=== PATIENT | female | born 1995 | race Caucasian/White ===

== ENCOUNTER 2018-03-06 12:33 | Day surgery (SDC) | payer OTHER ==
--- NOTE | 2018-03-06 14:18 | ULT ---
THYROID ULTRASOUND: INDICATION: Referral for thyroid nodule fine needle aspiration. COMPARISON: None. FINDINGS: There are numerous small hypoechoic nodules, all measuring less than 1 cm in size seen throughout bot h the right and left thyroid nodule. No suspicious thyroid nodule is identified. The left thyroid lobe measures 2.3 x 4.5 x 1.7 cm. Right thyroid lobe measures 2.2 x 5.9 x 2.2 cm. Thyroid isthmus measures 0.39 cm. IMPRESSION: Findings of multinodular goiter. No dominant thyroid nodule is evident. No suspicious thyroid nodul e is evident for fine needle aspiration sampling. Recommend a followup thyroid ultrasound in 1 year to document stability. POS: RUBI
== END 2018-03-06 13:25 ==
LOC: ULT 12:33
PROVIDERS: ATTEND Family Medicine
DX: E04.2 Nontoxic multinodular goiter (principal); J45.909 Unspecified asthma, uncomplicated; F41.9 Anxiety disorder, unspecified; F39 Unspecified mood [affective] disorder
CPT/HCPCS: 76536

== ENCOUNTER 2019-03-06 08:40 | Outpatient (CLI) | payer OTHER ==
--- NOTE | 2019-03-06 09:44 | ULT ---
Thyroid ultrasound: 03/06/2019 COMPARISON: 03/06/2018 HISTORY: Reevaluate thyroid nodule TECHNIQUE: Multiplanar grayscale sonographic imaging of the thyroid gland obtained. FINDINGS: Thyroid isthmus measures 4 mm in AP dimension, right lobe measures 5.5 x 2.9 x 1.9 cm, and left lobe measures 5.6 x 2.0 x 1.7 cm. There are numerous tiny cystic nodules noted throughout the right and left lobe of the thyroid gland. The thyroid nodules measure up to approximately 8 mm on the right and 6 mm on the left. No suspicious solid/dominant thyroid nodule noted. IMPRESSION: Stable thyroid ultrasound. No suspicious thyroid nodules.
== END 2019-03-06 08:41 | disposition home or self-care (01) ==
LOC: BICULT 08:40
PROVIDERS: ATTEND Family Medicine
DX: E04.2 Nontoxic multinodular goiter (principal)
CPT/HCPCS: 76536